=== PATIENT | female | born 1990 | race Caucasian/White ===

== ENCOUNTER 2018-07-16 12:16 | Emergency (ER) | payer SELFPAY ==
[~2018-07-16] VITALS: Ht 157.5 cm; Wt 49.0 kg
--- NOTE | 2018-07-16 12:35 | NUR ---
PT ELOPED BEFORE BEING SEEN BY [facility]IA[facility]
[2018-07-16 12:37] VITALS: BP 144/93
== END 2018-07-16 12:38 | disposition left against medical advice (07) ==
LOC: ER 12:16
DX: Z53.21 Procedure and treatment not carried out due to patient leaving prior to being seen by health care provider (principal); F41.9 Anxiety disorder, unspecified